=== PATIENT | female | born 1995 | race Caucasian/White ===

== ENCOUNTER → 2017-06-20 10:40 | Outpatient (CLI) | payer OTHER, SELFPAY ==
[2017-06-20 12:10] LABS: Absolute Lymphocyte Count 1.69 X10^3/ul (0.83-4.51); Absolute Neutrophil Count 3.2 X10^3/uL (2.0-7.7); Basophil# 0.06 X10^3/uL; Basophil% 1.1 % (0-1); Eosinophil# 0.08 X10^3/uL; Eosinophils% 1.4 % (0-5); Hemoglobin 13.2 g/dl (12.0-15.0); Lymphocyte # 1.69 X10^3/ul (4.0); Lymphocyte % 30.5 % (19-41); Mean Corp Hgb Conc 33.8 g/gl (32-36); Mean Corpuscular Hgb 30.3 pg (27.0-32.0); Mean Corpuscular Volume 89.7 fL (81-99); Mean Platelet Vol. 10.6 fl (6.2-12.0); Monocyte# 0.54 X10^3/uL; Monocyte% 9.7 % (0-10); Neutrophil # 3.18 X10^3/uL (2.7-7.7); Neutrophil % 57.3 % (47-70); Platelet Count 190 K/mm3 (150-450); RBC Distribution Width CV 12.9 % (11.6-14.6); RBC Distribution Width SD 41.6 fl (35.1-43.9); Red Blood Count 4.35 M/mm3 (4.2-5.4); White Blood Count 5.6 K/mm3 (4.4-11.0)
[2017-06-20 12:17] LABS: POSITIVE COUNT NO; POSITIVE DIFFERENTIAL NO; POSITIVE MORPHOLOGY NO
[2017-06-20 12:55] LABS: AST(SGOT) 19 U/L (15-37); Alanine Aminotransfer ALT/SGPT 17 U/L (13-56); Albumin, Serum 3.7 g/dL (3.2-5.0); Alkaline Phosphatase 65 U/L (45-117); Anion Gap 9 (5-15); BUN 11 mg/dL (7-18); BUN/Creat Ratio 13.8 RATIO (10-20); Calcium,Total 8.6 mg/dL (8.5-10.1); Chloride 109 mmol/L (98-107); EST Glomerular Filtration Rate 95 mL/min (>60); Est Glom Filt Rate - Afr Amer 115 mL/min (>60); Ferritin 33 ng/mL (8-252); Globulin 3.7 g/dL (2.2-4.2); Glucose 70 mg/dL (74-106); Protein, Total 7.4 g/dL (6.4-8.2); Sodium Level 140 mmol/L (136-145); T4 Total, Thyroxin 11.8 ug/dL (4.8-13.9); Thyroid Stim Hormone (TSH) 1.09 uIU/mL (0.358-3.74)
[2017-06-21 09:43] LABS: Vitamin B12 329 pg/mL (211-911)
[2017-06-22 08:39] LABS: ANTINUCLEAR ANTIBODIES DIRECT Negative (Negative)
== END ==
PROVIDERS: Family Provider Family Medicine; PCP Family Medicine; Visit Provider Family Medicine
DX: R53.83 Other fatigue (principal)
CPT/HCPCS: 36415; 80053; 82607; 82728; 82746; 84436; 84443; 84481; 85025; 86038

== ENCOUNTER 2017-11-25 19:53 | Emergency (ER) | payer OTHER, SELFPAY ==
[2017-11-25 19:54] VITALS: BP 138/86; PULSE 89; RESP 14; TEMP 37; O2SAT 99; BMI 25.6
--- NOTE | 2017-11-25 20:23 | US_ITS ---
STUDY: ABDOMINAL ULTRASOUND - RIGHT UPPER QUADRANT REASON FOR VISIT: Female, 22 years old. Intermittent right upper quadrant pain for a few weeks.. TECHNIQUE: Ultrasound evaluation of the right upper quadrant was performed with real-time and static don-scale imaging. TECHNICAL QUALITY: Adequate. COMPARISON: None. FINDINGS: Liver: The liver measures 15.5 cm. There is normal echogenicity of the liver. The bile ducts are within normal limits. There is hepatic color flow. The direction of portal flow is hepatopetal. There is no demonstrated mass lesion. Gallbladder: Normal distended gallbladder. The gallbladder wall measures 2 mm. There is a negative sonographic Whipple's sign. There is no pericholecystic fluid. There are no gallstones. Common Bile Duct (C.B.D.): The common bile duct measures 4 mm. Pancreas: Normal size of the head, body and tail of the pancreas. There is normal echogenicity of the pancreas. There is no demonstrated pancreatic mass or cyst. Right Kidney: Normal size of the right kidney. The right kidney measures 10.5 cm. Normal renal cortex. The right cortex measures 1.3 cm. There is no demonstrated renal mass or cyst. There is no right hydronephrosis. US/Gallbladder IMPRESSION: Normal right upper quadrant ultrasound examination. Electronically Signed: Xander Cooper DO at 22:11 EDT Tel [phone], Service support ,
[2017-11-25 20:43] LABS: Absolute Lymphocyte Count 2.43 X10^3/ul (0.83-4.51); Absolute Neutrophil Count 2.8 X10^3/uL (2.0-7.7); Basophil# 0.04 X10^3/uL; Basophil% 0.7 % (0-1); Eosinophil# 0.12 X10^3/uL; Hematocrit 39.2 % (37-47); Hemoglobin 13.1 g/dl (12.0-15.0); Lymphocyte # 2.43 X10^3/ul (4.0); Lymphocyte % 40.6 % (19-41); Mean Corp Hgb Conc 33.4 g/gl (32-36); Mean Corpuscular Hgb 29.9 pg (27.0-32.0); Mean Corpuscular Volume 89.5 fL (81-99); Mean Platelet Vol. 9.6 fl (6.2-12.0); Monocyte# 0.55 X10^3/uL; Monocyte% 9.2 % (0-10); Neutrophil # 2.84 X10^3/uL (2.7-7.7); Neutrophil % 47.5 % (47-70); Platelet Count 208 K/mm3 (150-450); RBC Distribution Width CV 11.8 % (11.6-14.6); RBC Distribution Width SD 38.5 fl (35.1-43.9); Red Blood Count 4.38 M/mm3 (4.2-5.4)
[2017-11-25 20:50] LABS: POSITIVE COUNT NO; POSITIVE DIFFERENTIAL NO; POSITIVE MORPHOLOGY NO
[2017-11-25 20:58] LABS: ALB/GLOB Ratio 0.9 RATIO (0.9-2.4); AST(SGOT) 19 U/L (15-37); Alanine Aminotransfer ALT/SGPT 33 U/L (13-56); Albumin, Serum 3.6 g/dL (3.2-5.0); Alkaline Phosphatase 53 U/L (45-117); Anion Gap 9 (5-15); BUN 9 mg/dL (7-18); BUN/Creat Ratio 10.5 RATIO (10-20); Calcium,Total 8.6 mg/dL (8.5-10.1); Chloride 107 mmol/L (98-107); Creatinine, Serum 0.85 mg/dL (0.55-1.02); EST Glomerular Filtration Rate 87 mL/min (>60); Est Glom Filt Rate - Afr Amer 105 mL/min (>60); Estimated Creatinine Clearance 81.41 ml/min; Glucose 85 mg/dL (74-106); Lipase 198 U/L (73-393); Potassium 3.4 mmol/L (3.5-5.1); Protein, Total 7.6 g/dL (6.4-8.2); Sodium Level 139 mmol/L (136-145)
[2017-11-25 21:02] LABS: Pregnancy, Serum, hCG Quali. NEGATIVE Negative (0-9 Nonpreg)
[2017-11-25 21:13] LABS: Color, Urine Yellow (Yellow); Glucose, Dipstick Normal (Normal); Ketone-Dipstick Negative (Negative); Leukocyte Esterase-Dipstick Negative /ul (Negative); Nitrite-Dipstick Negative (Negative); Occult Blood-Urine Negative /ul (Negative); Protein-Dipstick 15 mg/dl (Negative); Urine Bilirubin Dipstick Negative (Negative); Urine Clarity Clear (Clear); Urine Urobilinogen Normal (Normal); Urine pH 6.5 (5.0 - 8.0)
[2017-11-25 21:20] LABS: Bacteria RARE /hpf (None Seen); Mucous, Urine 3+ /hpf (<or=2+); Red Blood Cells-Urine 0-5 SEEN /hpf (0-5); Squamous Epithelial Cells - UA 0-5 SEEN /hpf (5-10); White Blood Cells 0-5 SEEN /hpf (0-5)
--- NOTE | 2017-11-25 22:32 | ED.VISSUMM ---
- ER Visit Summary Date of Service: 11/25/17 Chief Complaint: Abdominal pain History of Present Illness: The patient is a 22 F with right upper quadrant abdominal pain for 2 weeks. Worse of the last 2 days. Intermittent and worse with food. Pain is in the right upper quadrant and does radiate to the right shoulder at times. Associated with nausea. No vomiting. No fevers or jaundice. No chest pain or shortness of breath. Physical Examination: Afebrile and vital signs unremarkable. Alert and oriented. No acute distress. Skin normal in color without jaundice or pallor. Heart regular rate and rhythm. Lungs clear. Abdomen tender in the right upper quadrant. No guarding or rebound. Test Results: CBC normal. Potassium 3.4 otherwise CMP normal. Lipase normal. Urinalysis normal. test negative. Right upper quadrant ultrasound unremarkable. Emergency Department Course and Treatment: Patient initially declined pain and nausea medication. Workup was performed and unremarkable. Patient did request something for nausea on reevaluation. She was treated with Zofran. I believe the patient is appropriate for outpatient follow-up. She will call her doctor to arrange follow-up. Return for any new or worsening issues. She was given a prescription for Zofran as well as Pepcid. Treatment Plan: As above Disposition: Discharged Impression: 1. Right upper quadrant abdominal pain This note was generated with [employer] dictation software. It may contain incorrect words, spelling, and punctuation that were not noted in review of the chart prior to signing ED Disposition - Plan for ED Patient: Chief Complaint: Abd Pain Referrals: Norris Simmons MD [Primary Care Provider] -
--- NOTE | 2017-11-25 22:34 | ED.DEP ---
ED Disposition - Plan for ED Patient: Chief Complaint: Abd Pain Instructions: ED Abdominal Pain Unkn Cause Prescriptions: Ondansetron [Zofran Odt] 4 mg PO Q8H PRN PRN #10 tab PRN Reason: Nausea Famotidine [Pepcid] 20 mg PO BID #28 tab Referrals: Norris Simmons MD [Primary Care Provider] -
[2017-11-25] MEDS: Ondansetron 4 MG/2 ML Vial IV (22:37)
[2017-11-25 22:39] VITALS: BP 124/79; PULSE 65; RESP 16
== END 2017-11-25 22:41 | disposition home or self-care (01) ==
LOC: ED 21:36
PROVIDERS: Emergency Provider Emergency Medicine; Family Provider Family Medicine; PCP Family Medicine
DX: R10.11 Right upper quadrant pain (principal)
CPT/HCPCS: 76705; 80053; 81001; 83690; 84703; 85025; 96374; 99283; A4216; J2405

== ENCOUNTER → 2018-11-19 | Outpatient (CLI) | payer OTHER, SELFPAY ==
[2018-11-26 12:53] LABS: HPV Reflexed? NOT INDICATED
== END | disposition home or self-care (01) ==
LOC: LABSPEC 13:27
PROVIDERS: Visit Provider Obstetrics & Gynecology
DX: Z12.4 Encounter for screening for malignant neoplasm of cervix (principal)
CPT/HCPCS: 88175; G0145

== ENCOUNTER 2019-05-21 12:06 | Emergency (ER) | payer OTHER, SELFPAY ==
[2019-04-09 16:54] VITALS: BMI 25.6
[2019-05-21 12:08] VITALS: BP 125/84; PULSE 82; RESP 17; TEMP 36.9; O2SAT 96; BMI 27.6
--- NOTE | 2019-05-21 12:20 | US_ITS ---
STUDY: ABDOMINAL ULTRASOUND - RIGHT UPPER QUADRANT REASON FOR VISIT: Female, 24 years old MIDLINE AND RUQ PAIN 4 DAYS NAUSEA POST MEALS TECHNIQUE: Ultrasound evaluation of the right upper quadrant was performed with real-time and static don-scale imaging. TECHNICAL QUALITY: Adequate. COMPARISON: Comparison is made with prior study dated November 25, 2017. FINDINGS: Liver: The liver measures 13.6 cm. There is normal echogenicity of the liver. The bile ducts are within normal limits. There is hepatic color flow. The direction of portal flow is hepatopetal. There is no demonstrated mass lesion. Gallbladder: Normal distended gallbladder. The gallbladder wall measures 1.8 mm. There is a negative sonographic Whipple''s sign. There is no pericholecystic fluid. There are no gallstones. Common Bile Duct (C.B.D.): The common bile duct measures 2.0 mm. Pancreas: Normal size of the head, body and tail of the pancreas. There is normal echogenicity of the pancreas. There is no demonstrated pancreatic mass or cyst. Right Kidney: Normal size of the right kidney. The right kidney measures 11.1 cm x 5.2 cm x 4.0 cm. Normal renal cortex. The right cortex measures 1.2 cm. There is no demonstrated renal mass or cyst. There is no right hydronephrosis. US/Gallbladder IMPRESSION: Normal right upper quadrant ultrasound examination. Electronically Signed: Reggie Navarro, at 13:33 EDT , Service support ,
--- NOTE | 2019-05-21 12:21 | ED.DCSUM_ITS ---
History of Present Illness Chief Complaint: Abd Pain Informant: Patient Onset: Days Context: Gradual Onset Timing: Intermittent Current Severity: Moderate Maximum Severity: Moderate Narrative: The patient is an otherwise healthy 24-year-old female who presents to the emergency department with epigastric and right upper quadrant pain. She states her symptoms began a few days ago. She states over the past 3 days, no matter what she eats she gets nauseated and has pain in the midepigastric area to her right upper quadrant. She describes it as a burning or stabbing pain. Sometimes it does radiate to her back. She denies any fevers but does think that she has had chills. She denies any urinary symptoms, cough, shortness of breath. She has no history of prior abdominal surgery. She cannot recall any specific foods does make it worse. Prior similar symptoms: No Recent Illness/Hospitalization: No Past Medical History - Allergies and Home Meds Allergies/Adverse Reactions: Allergies latex Allergy (Verified 05/21/19 12:07) Itching acetaminophen [From Vicodin] Adverse Reaction (Verified 05/21/19 12:07) Nausea pt. can take acetaminophen codeine Adverse Reaction (Verified 05/21/19 12:07) Nausea hydrocodone [From Vicodin] Adverse Reaction (Verified 05/21/19 12:07) Nausea Primary Care Physician: Norris Simmons MD [Primary Care Provider] - Prior records reviewed: Yes Past Medical History: None Surgical History: no surgical history Smoking Status: Never smoker Review of Systems General: Reports: Chills. Denies: Fever, Sweats Eyes: Denies: Visual changes - bilaterally, Diplopia ENT: Denies: Rhinorrhea, Sore throat Cardiovascular: Denies: Chest pain, Palpitations Respiratory: Denies: Dyspnea, Cough, Dyspnea on exertion Gastrointestinal: Reports: Abdominal pain, Nausea. Denies: Vomiting, Diarrhea, Melena, Hematochezia Genitourinary: Denies: Dysuria, Hematuria, Frequency Musculoskeletal: Denies: Back pain, Extremity Pain Skin: Denies: Rash, Wounds Neurological: Denies: Headache, Weakness, Numbness Physical Exam Vital Signs/Narrative: Vital Signs Temp Pulse Resp BP Pulse Ox 05/21/19 12:08 98.4 F 82 17 125/84 H 96 Inital Vital Signs reviewed: Yes General: Well nourished, Well developed, No Acute Distress Head: Normocephalic, Atraumatic Eyes: Perrl, EOMI ENT: Moist mucous membranes, No rhinorrhea Neck: Supple, Nontender Cardiovascular: Regular rate, Regular rhythm, No murmurs Respiratory: No distress, CTA bilaterally, Chest nontender Abdomen: Soft, Nondistended, Normal bowel sounds, Tender. Negative for: Guarding, Rebound tenderness, Hyperactive bowel sounds Back: Nontender, Normal Inspection Extremities: Nontender, No edema Skin: Normal color, No rash Neurological: Alert, Oriented x3, Cranial nerves II-XII grossly intact, Normal Strength, Normal Sensation Psychological: Normal affect, Normal Mood Diagnostic/Tx/Re-eval Clinical Impression(s) from Imaging Studies Gallbladder Ultrasound 05/21/19 12:20 IMPRESSION: Normal right upper quadrant ultrasound examination. Electronically Signed: Reggie Ramon, at 13:33 EDT , Service support , Abnormal Lab Results 05/21/19 05/21/19 05/21/19 12:30 12:30 12:35 WBC 6.5 RBC 4.63 Hgb 14.3 Hct 42.1 MCV 90.9 MCH 30.9 MCHC 34.0 RDW Std Deviation 38.4 RDW Coeff of Brennon 11.5 L Plt Count 145 L MPV 9.9 Immature Gran % (Auto) 0.200 Neut % (Auto) 44.4 L Lymph % (Auto) 43.4 H [place] % (Auto) 10.1 H Eos % (Auto) 1.1 Baso % (Auto) 0.8 Absolute Neuts (auto) 2.9 Absolute Lymphs (auto) 2.84 Nucleated RBC % 0 Sodium 139 Potassium 3.6 Chloride 107 Carbon Dioxide 26.0 Anion Gap 6 BUN 9 Creatinine 0.80 Estim Creat Clear Calc 85.02 Est GFR (MDRD) Af Amer 113 Est GFR (MDRD) Non-Af 93 BUN/Creatinine Ratio 11.3 Glucose 80 Calcium 8.8 Total Bilirubin 0.50 Direct Bilirubin 0.13 AST 31 ALT 50 Alkaline Phosphatase 52 Total Protein 7.7 Albumin 3.8 Globulin 3.9 Lipase 151 Urine Color Urine Clarity Urine pH Ur Specific [place] Urine Protein Urine Glucose (UA) Urine Ketones Urine Occult Blood Urine Nitrite Urine Bilirubin Urine Urobilinogen Ur Leukocyte Esterase Urine RBC Urine WBC Ur Squamous Epith Cells Urine Bacteria Urine Mucus Urine Test Negative 05/21/19 12:35 WBC RBC Hgb Hct MCV MCH MCHC RDW Std Deviation RDW Coeff of Brnenon Plt Count MPV Immature Gran % (Auto) Neut % (Auto) Lymph % (Auto) [place] % (Auto) Eos % (Auto) Baso % (Auto) Absolute Neuts (auto) Absolute Lymphs (auto) Nucleated RBC % Sodium Potassium Chloride Carbon Dioxide Anion Gap BUN Creatinine Estim Creat Clear Calc Est GFR (MDRD) Af Amer Est GFR (MDRD) Non-Af BUN/Creatinine Ratio Glucose Calcium Total Bilirubin Direct Bilirubin AST ALT Alkaline Phosphatase Total Protein Albumin Globulin Lipase Urine Color Yellow Urine Clarity Clear Urine pH 8.0 Ur Specific [place] 1.015 Urine Protein Negative Urine Glucose (UA) Normal Urine Ketones Negative Urine Occult Blood Negative Urine Nitrite Negative Urine Bilirubin Negative Urine Urobilinogen Normal Ur Leukocyte Esterase Negative Urine RBC 0 SEEN Urine WBC 0 SEEN Ur Squamous Epith Cells 0-5 SEEN Urine Bacteria 0 SEEN Urine Mucus 0 SEEN Urine Test - Medical Decision Making Patient presents with midepigastric pain and her right upper quadrant. She does have some mild tenderness on examination, but no definitive Whipple sign. She does describe some food intolerance. Screening labs are obtained. These are unremarkable. Liver functions are normal. Patient underwent ultrasound which shows no evidence of acute biliary process. On reevaluation, the patient is resting comfortably after Toradol and Zofran. My suspicion is that this may be gastritis. I am going to treat the patient with Zofran and Pepcid. I do feel that she is safe for outpatient therapy. Impression 1. Midepigastric abdominal pain 2. Nausea vomiting ED Disposition - Plan for ED Patient: Instructions: GASTRITIS vs. ULCER Prescriptions: Famotidine [Pepcid] 20 mg PO BID #28 tab Prescription Printed Ondansetron [Zofran Odt] 4 mg PO Q8H PRN PRN #10 tab PRN Reason: Nausea Prescription Printed Referrals: Norris Simmons MD [Primary Care Provider] -
[2019-05-21] MEDS: Ketorolac 30 MG/ML Syringe IV (12:29)
[2019-05-21] MEDS: Ondansetron 4 MG/2 ML Vial IV (12:29)
[2019-05-21] MEDS: 0.9% Normal Saline 1,000 ML 1000 ML IV (12:29)
[2019-05-21 12:42] LABS: Absolute Lymphocyte Count 2.84 X10^3/uL (0.83-4.51); Absolute Neutrophil Count 2.9 X10^3/uL (2.0-7.7); Basophil# 0.05 X10^3/uL; Basophil% 0.8 % (0-1); Eosinophil# 0.07 X10^3/uL; Eosinophils% 1.1 % (0-5); Hematocrit 42.1 % (37-47); Hemoglobin 14.3 g/dL (12.0-15.0); Lymphocyte # 2.84 X10^3/ul (4.0); Lymphocyte % 43.4 % (19-41); Mean Corpuscular Hgb 30.9 pg (27.0-32.0); Mean Corpuscular Volume 90.9 fL (81-99); Mean Platelet Vol. 9.9 fl (6.2-12.0); Monocyte# 0.66 X10^3/uL; Monocyte% 10.1 % (0-10); NRBC Flagged by Analyzer 0 % (0-5); Neutrophil # 2.91 X10^3/uL (2.7-7.7); Neutrophil % 44.4 % (47-70); Platelet Count 145 K/mm3 (150-450); RBC Distribution Width CV 11.5 % (11.6-14.6); RBC Distribution Width SD 38.4 fl (35.1-43.9); Red Blood Count 4.63 M/mm3 (4.2-5.4); White Blood Count 6.5 K/mm3 (4.4-11.0)
[2019-05-21 12:46] LABS: Bacteria 0 SEEN /hpf (None Seen); Mucous, Urine 0 SEEN /hpf (<or=2+); Red Blood Cells-Urine 0 SEEN /hpf (0-5); White Blood Cells 0 SEEN /hpf (0-5)
[2019-05-21 12:50] LABS: Color, Urine Yellow (Yellow); Glucose, Dipstick Normal (Normal); Ketone-Dipstick Negative (Negative); Leukocyte Esterase-Dipstick Negative /ul (Negative); Nitrite-Dipstick Negative (Negative); Occult Blood-Urine Negative /ul (Negative); Protein-Dipstick Negative (Negative); Specific Gravity, Urine 1.015 (1.002-1.030); Urine Bilirubin Dipstick Negative (Negative); Urine Clarity Clear (Clear); Urine Urobilinogen Normal (Normal)
[2019-05-21 12:55] LABS: Internal QC Validated? YES +Cl - CLEAR BKGD; Pregnancy, Urine Negative Negative
[2019-05-21 12:56] LABS: AST(SGOT) 31 U/L (15-37); Alanine Aminotransfer ALT/SGPT 50 U/L (13-56); Albumin, Serum 3.8 g/dL (3.2-5.0); Alkaline Phosphatase 52 U/L (45-117); Anion Gap 6 (5-15); BUN 9 mg/dL (7-18); BUN/Creat Ratio 11.3 RATIO (10-20); Bilirubin, Direct 0.13 mg/dL (0.00-0.30); Calcium,Total 8.8 mg/dL (8.5-10.1); Chloride 107 mmol/L (98-107); EST Glomerular Filtration Rate 93 mL/min (>60); Est Glom Filt Rate - Afr Amer 113 mL/min (>60); Estimated Creatinine Clearance 85.02 ml/min; Globulin 3.9 g/dL (2.2-4.2); Glucose 80 mg/dL (74-106); Lipase 151 U/L (73-393); Potassium 3.6 mmol/L (3.5-5.1); Protein, Total 7.7 g/dL (6.4-8.2); Sodium Level 139 mmol/L (136-145)
[2019-05-21 13:06] LABS: Squamous Epithelial Cells - UA 0-5 SEEN /hpf (5-10)
[2019-05-21 14:14] VITALS: BP 139/93; RESP 17
== END 2019-05-21 14:17 | disposition home or self-care (01) ==
PROVIDERS: Emergency Provider Emergency Medicine; PCP Family Medicine
DX: R10.13 Epigastric pain (principal); R11.2 Nausea with vomiting, unspecified
CPT/HCPCS: 76705; 80048; 80076; 81001; 81025; 83690; 85025; 96361; 96374; 96375; 99283; J7030; J2405

== ENCOUNTER → 2019-08-19 | Outpatient (CLI) | payer OTHER, SELFPAY ==
[2019-08-19 20:29] LABS: Chlamydia Trachomatis by PCR Negative (Negative); Neisserai gonorrhoeae by PCR Negative (Negative); Probe Check PASS; Sample Adequacy Control PASS; Specimen Processing Control PASS
== END | disposition home or self-care (01) ==
PROVIDERS: PCP Family Medicine; Referring Provider Obstetrics & Gynecology; Visit Provider Obstetrics & Gynecology
DX: Z11.3 Encounter for screening for infections with a predominantly sexual mode of transmission (principal)
CPT/HCPCS: 87491; 87591

== ENCOUNTER 2019-11-19 22:04 | Emergency (ER) | payer OTHER, SELFPAY ==
[2019-11-19 22:05] VITALS: BP 134/92; PULSE 77; RESP 18; TEMP 36.8; O2SAT 99; BMI 27.6
--- NOTE | 2019-11-19 22:24 | ED.VIS.GEN ---
History of Present Illness Chief Complaint: Dizziness Detail of Chief Complaint: Lightheadedness, shakes and not feeling self Informant: Patient, Significant Other Onset: Weeks Context: Sudden Onset Timing: Intermittent Quality: Feels like passing out, shakes and not normal self Location: Not applicable Current Severity: - - Minimal Maximum Severity: Moderate Worsened by: Nothing Relieved by: Nothing Associated Symptoms: Nausea, slight sweating and things getting black Narrative: Patient is a 24-year-old female who presents with vague symptoms that been intermittent. She denies headache. Denies double vision, blurred vision loss of vision. No trouble speech or swallowing. Eyes ringing or ears. Denies neck pain. Denies chest pain. Denies shortness of breath. She does report nausea. She denies urologic symptoms. She denies gynecologic symptoms. She complains of shaking of her extremities. This is externals shaking not internal. She is presently on medication for peptic ulcer disease and control pills. She denies leg pain, swelling discoloration. No history of seizures. No history of anxiety disorder. Prior similar symptoms: Yes - 3 years ago due to -induced hypertension Recent Illness/Hospitalization: No - Past Medical History (1) induced hypertension Status: Resolved Past Medical History - Allergies and Home Meds Allergies/Adverse Reactions: Allergies latex Allergy (Verified 11/19/19 22:07) Itching acetaminophen [From Vicodin] Adverse Reaction (Verified 11/19/19 22:07) Nausea pt. can take acetaminophen codeine Adverse Reaction (Verified 11/19/19 22:07) Nausea hydrocodone [From Vicodin] Adverse Reaction (Verified 11/19/19 22:07) Nausea Primary Care Physician: Teetee Fenton MD [Primary Care Provider] - Prior records reviewed: Yes Surgical History: no surgical history Lives: Spouse/ Significant Other, With Family Smoking Status: Never smoker Alcohol: None Drugs: None Review of Systems General: Denies: Chills, Fever, Malaise, Subjective, Sweats, Weight loss, - Eyes: Denies: Visual changes - bilaterally, Blurred Vision - bilaterally ENT: Denies: Rhinorrhea, Sore throat Cardiovascular: Denies: Chest pain, Palpitations, Heart racing Respiratory: Denies: Dyspnea, Dyspnea on exertion Gastrointestinal: Reports: Nausea. Denies: Abdominal pain, Vomiting, Diarrhea, Melena, Hematochezia Genitourinary: Denies: Dysuria, Hematuria, Frequency Musculoskeletal: Denies: Back pain, Extremity Pain Skin: Denies: Rash, Wounds Neurological: Denies: Headache, Weakness, Parasthesia, Numbness Psych: Denies: Anxiety Endocrine: Denies: Polyuria, Polydipsia Hematologic: Denies: Easy bruising, Easy bleeding Physical Exam Vital Signs/Narrative: Vital Signs Temp Pulse Resp BP Pulse Ox 11/19/19 22:05 98.2 F 77 18 134/92 H 99 Inital Vital Signs reviewed: Yes General: Well nourished, Well developed, No Acute Distress Head: Normocephalic, Atraumatic Eyes: Perrl, EOMI ENT: Moist mucous membranes, No rhinorrhea Neck: Supple, Nontender Cardiovascular: Regular rate, Regular rhythm, No murmurs Respiratory: No distress, CTA bilaterally, Chest nontender Abdomen: Soft, Nontender, Nondistended, Normal bowel sounds Back: Nontender, Normal Inspection Extremities: Nontender, No edema, - - Continuous movement of her fingers bilaterally. Skin: Normal color, No rash, No Trauma. Negative for: Cyanosis, Diaphoresis, Jaundice Neurological: Alert, Oriented x3, Cranial nerves II-XII grossly intact, Normal Strength, Normal Sensation, Normal DTR Psychological: Normal affect, Normal Mood Diagnostic/Tx/Re-eval Laboratory Results 11/19/19 11/19/19 22:15 22:15 WBC 7.0 RBC 4.38 Hgb 13.9 Hct 40.2 MCV 91.8 MCH 31.7 MCHC 34.6 RDW Std Deviation 38.6 RDW Coeff of Brennon 11.4 L Plt Count 189 MPV 9.9 Sodium 140 Potassium 3.0 L Chloride 107 Carbon Dioxide 25.0 Anion Gap 8 BUN 8 Creatinine 0.91 Estim Creat Clear Calc 74.74 Est GFR (MDRD) Af Amer 96 Est GFR (MDRD) Non-Af 80 BUN/Creatinine Ratio 8.8 L Glucose 99 Calcium 9.0 Patient's blood work is unremarkable and does not explain her symptoms. - Medical Decision Making She has reported lightheadedness. Will obtain orthostatic symptoms. CBC to rule out anemia. Electrolyte panel to rule out renal dysfunction, and electrolyte abnormality. Patient also describes what may be a near syncopal episode. Orthostatic vital signs are normal. Blood work is unremarkable. This may represent anxiety, near syncope for unknown reason. Will have patient follow-up with PCP since there is no emergent abnormality requiring intervention or hospitalization. ED Disposition - Plan for ED Patient: Disposition: Home or Assisted Living Diagnosis: Coarse tremor, Orthostatic dizziness Instructions: ED Dizziness [facility] Referrals: Teetee Fenton MD [Primary Care Provider] - 3-5 Days
[2019-11-19 22:39] VITALS: BP 124/88; BP 132/88; BP 135/89; PULSE 100; PULSE 72
[2019-11-19 22:43] LABS: Hematocrit 40.2 % (37-47); Hemoglobin 13.9 g/dL (12.0-15.0); Mean Corp Hgb Conc 34.6 g/dL (32-36); Mean Corpuscular Hgb 31.7 pg (27.0-32.0); Mean Corpuscular Volume 91.8 fL (81-99); Mean Platelet Vol. 9.9 fl (6.2-12.0); Platelet Count 189 K/mm3 (150-450); RBC Distribution Width CV 11.4 % (11.6-14.6); RBC Distribution Width SD 38.6 fl (35.1-43.9); Red Blood Count 4.38 M/mm3 (4.2-5.4)
[2019-11-19 22:50] LABS: Anion Gap 8 (5-15); BUN 8 mg/dL (7-18); BUN/Creat Ratio 8.8 RATIO (10-20); Chloride 107 mmol/L (98-107); Creatinine, Serum 0.91 mg/dL (0.55-1.02); EST Glomerular Filtration Rate 80 mL/min (>60); Est Glom Filt Rate - Afr Amer 96 mL/min (>60); Estimated Creatinine Clearance 74.74 ml/min; Glucose 99 mg/dL (74-106); Sodium Level 140 mmol/L (136-145)
[2019-11-20 00:06] VITALS: BP 121/91; PULSE 72; RESP 16; O2SAT 97
== END 2019-11-20 00:07 | disposition home or self-care (01) ==
PROVIDERS: Emergency Provider Emergency Medicine; PCP Student in an Organized Health Care Education/Training Program
DX: G25.2 Other specified forms of tremor (principal); R42 Dizziness and giddiness
CPT/HCPCS: 80048; 85027; 99284; A4216

== ENCOUNTER → 2019-12-01 | Outpatient (CLI) | payer OTHER, SELFPAY ==
[2019-11-19 22:05] VITALS: BMI 27.6
[2019-12-03 14:36] LABS: HPV Reflexed? NOT INDICATED
== END | disposition home or self-care (01) ==
LOC: LABSPEC 10:38
PROVIDERS: PCP Student in an Organized Health Care Education/Training Program; Visit Provider Obstetrics & Gynecology
DX: Z12.4 Encounter for screening for malignant neoplasm of cervix (principal)
CPT/HCPCS: 88175; G0145

== ENCOUNTER → 2020-12-09 13:09 | Outpatient (CLI) | payer OTHER, SELFPAY ==
[2020-12-13 00:06] LABS: Chlamydia By Nucleic Acid AMP Negative (Negative)
[2020-12-13 00:41] LABS: Gonococcus By Nucleic Acid AMP Negative (Negative)
[2020-12-13 16:24] LABS: HPV Reflexed? NOT INDICATED
== END ==
PROVIDERS: PCP Student in an Organized Health Care Education/Training Program; Visit Provider Obstetrics & Gynecology
DX: Z12.4 Encounter for screening for malignant neoplasm of cervix (principal); Z11.3 Encounter for screening for infections with a predominantly sexual mode of transmission
CPT/HCPCS: 87491; 87591; 88175; G0145